=== PATIENT | female | born 1990 | race Caucasian/White ===

== ENCOUNTER 2017-08-02 08:28 | Emergency (ER) | payer MEDICAID ==
[~2017-08-02] VITALS: Ht 157.5 cm; Wt 62.0 kg
[~2017-08-02 08:28] MED LIST: DOCU-138 PO; IBUP-779 PO
[2017-08-02] MEDS ORDERED: ACETAMINOPHEN 500MG TABLET PO ONE (09:30)
[2017-08-02 13:47] VITALS: BP 90/60
== END 2017-08-02 13:49 | disposition home or self-care (01) ==
LOC: ER 08:35
DX: J06.9 Acute upper respiratory infection, unspecified (principal)
CPT/HCPCS: 87070; 87430; 99284; Z7610

== ENCOUNTER 2017-10-23 17:27 | Emergency (ER) | payer MEDICAID ==
[~2017-10-23] VITALS: Ht 157.5 cm; Wt 64.0 kg
[2017-10-23 17:38] VITALS: BP 119/86
== END 2017-10-23 19:45 | disposition home or self-care (01) ==
LOC: ER 17:43
DX: S63.501A Unspecified sprain of right wrist, initial encounter (principal); S50.812A Abrasion of left forearm, initial encounter; S60.221A Contusion of right hand, initial encounter; S60.211A Contusion of right wrist, initial encounter; S50.12XA Contusion of left forearm, initial encounter; S50.02XA Contusion of left elbow, initial encounter; F17.200 Nicotine dependence, unspecified, uncomplicated; W19.XXXA Unspecified fall, initial encounter; Y93.89 Activity, other specified; Y92.89 Other specified places as the place of occurrence of the external cause; Y99.8 Other external cause status
CPT/HCPCS: 73080; 73090; 73110; 73130; 99284

== ENCOUNTER 2019-01-25 00:03 | Emergency (ER) | payer MEDICAID ==
[~2019-01-25] VITALS: Ht 157.5 cm; Wt 66.0 kg
[2019-01-25 06:26] VITALS: BP 107/71
== END 2019-01-25 06:30 | disposition home or self-care (01) ==
LOC: ER 00:03
DX: J06.9 Acute upper respiratory infection, unspecified (principal); Z98.890 Other specified postprocedural states
CPT/HCPCS: 99283

== ENCOUNTER 2020-11-20 20:53 | Emergency (ER) | payer MEDICAID, OTHER ==
[~2020-11-20] VITALS: Ht 157.5 cm; Wt 65.0 kg
[2020-11-20 20:58] VITALS: BP 141/79
== END 2020-11-20 22:27 | disposition home or self-care (01) ==
LOC: ER 20:53
DX: M54.5 Low back pain (principal); Z98.890 Other specified postprocedural states
CPT/HCPCS: 99281

== ENCOUNTER 2021-04-10 20:07 | Emergency (ER) | payer MEDICAID, OTHER ==
[~2021-04-10] VITALS: Ht 157.5 cm; Wt 68.0 kg
[2021-04-10] MEDS ORDERED: IBUPROFEN 600MG TABLET PO ONE (20:45)
[2021-04-11 00:05] VITALS: BP 126/76
== END 2021-04-11 00:38 | disposition home or self-care (01) ==
LOC: ER 20:07
DX: J02.9 Acute pharyngitis, unspecified (principal); R05 Cough; Z20.822 Contact with and (suspected) exposure to COVID-19; Z98.890 Other specified postprocedural states
CPT/HCPCS: 71045; 81025; 99283; C9803; U0003; U0005

== ENCOUNTER 2021-04-25 17:42 | Emergency (ER) | payer MEDICAID ==
[~2021-04-25] VITALS: Ht 157.5 cm; Wt 68.0 kg
[2021-04-25 17:49] VITALS: BP 112/70
[2021-04-25] MEDS ORDERED: CLIN300C12 MT (18:41)
[2021-04-25] MEDS ORDERED: CLINDAMYCIN PHOSPHATE 600MG/4ML VIAL IM ONE (18:45)
== END 2021-04-25 19:19 | disposition home or self-care (01) ==
LOC: ER 17:42
DX: L02.416 Cutaneous abscess of left lower limb (principal); Z98.890 Other specified postprocedural states
CPT/HCPCS: 96372; 99283; J3490